=== PATIENT | male | born 1985 | race Native Hawaiian/Other Pacific Islander ===

== ENCOUNTER 2017-08-01 23:33 | Emergency (ER) | payer OTHER ==
[~2017-08-01] VITALS: Ht 190.5 cm; Wt 90.7 kg
[2017-08-02 00:56] LABS: PLATELET COUNT 230 K/uL (142-355)
[2017-08-02 01:16] LABS: POTASSIUM 3.3 mmol/L (3.6-5.2)
[2017-08-02 01:36] VITALS: BP 170/96; TEMP 98
== END 2017-08-02 01:38 | disposition home or self-care (01) ==
LOC: ED 23:33
PROVIDERS: Specialist
DX: M25.511 Pain in right shoulder (principal); M25.562 Pain in left knee; V48.0XXA Car driver injured in noncollision transport accident in nontraffic accident, initial encounter
CPT/HCPCS: 36415; 80053; 85027; 99283

== ENCOUNTER → 2017-08-01 23:45 | Outpatient (CLI) | payer OTHER | END | disposition home or self-care (01) | LOC: AMB 23:45 | DX: R41.82 Altered mental status, unspecified (principal) ==